=== PATIENT | female | born 1980 | race Caucasian/White ===

== ENCOUNTER → 2024-11-15 13:04 | Outpatient (REF) | payer OTHER, SELFPAY ==
[2024-11-15 14:41] LABS: Hematocrit 38.7 % (37.0-47.0); Hemoglobin 12.6 g/dL (12.0-16.0); Mean Corp Hgb Conc. 32.6 g/dL (33.0-37.0); Mean Corpuscular Volume 98.2 fL (81.0-99.0); Nucleated Red Blood Cells % 0 %; Platelet Count 320 10^3/uL (130-400); Red Cell Dist. Width 12.5 % (11.5-14.5)
[2024-11-15 14:59] LABS: ALT (SGPT) 37 U/L (0-35); AST (SGOT) 43 U/L (14-36); Albumin 4.3 g/dl (3.5-5.0); Alkaline Phosphatase 92 U/L (38-126); Blood Urea Nitrogen 14 mg/dl (7-17); Calcium 9.5 mg/dl (8.4-10.2); Carbon Dioxide 28 mmol/L (22-30); Chloride 105 mmol/L (98-107); Glucose 107 mg/dl (70-99); Potassium 4.7 mmol/L (3.5-5.1); Sodium 138 mmol/L (135-145); Total Protein 7.2 g/dl (6.3-8.2); eGFR > 60.00
== END ==
LOC: REG 13:04
PROVIDERS: ATTENDING PHYSICIAN Surgery Plastic and Reconstructive Surgery; FAMILY PHYSICIAN Family Medicine
DX: Z01.810 Encounter for preprocedural cardiovascular examination (principal); Z01.812 Encounter for preprocedural laboratory examination
CPT/HCPCS: 36415; 80053; 85025; 93005